=== PATIENT | female | born 1955 | race Two or more races ===

== ENCOUNTER 2017-08-27 09:55 | Outpatient (CLI) | payer OTHER ==
[~2017-08-27 09:55] MED LIST: AMBIEN10 MG; BUDEPRION SR150 MG; CATAFLAM50 MG PO; COZAAR25 MG PO; EFFEXOR XR150 MG; HYZAAR 50/12.51 TAB; KLONOPIN0.5 MG/TAB; METOPROLOL SUCC25 MG; NEURONTIN250 MG/5 M
== END 2017-08-27 15:00 | disposition home or self-care (01) ==
LOC: TOM 09:55
DX: G89.11 Acute pain due to trauma (principal); R51 Headache; R42 Dizziness and giddiness

== ENCOUNTER 2017-10-05 07:47 | Outpatient (CLI) | payer OTHER ==
[2017-10-12] MEDS ORDERED: GRALISE300 MG (12:18)
[2017-10-12] MEDS ORDERED: COZAAR100 MG (12:19)
[2017-10-12] MEDS ORDERED: TOPROL XL25 MG (12:19)
[2017-10-12] MEDS ORDERED: FENOFIBRATE134 MG (12:19)
== END 2017-10-05 07:56 | disposition home or self-care (01) ==
LOC: SONOGRAMA 07:47 → MAMO-SONO 08:15
DX: R10.11 Right upper quadrant pain (principal)

== ENCOUNTER 2017-11-28 07:41 | Outpatient (CLI) | payer OTHER ==
[~2017-11-28 07:41] MED LIST changes: +COZAAR100 MG; +FENOFIBRATE134 MG; +GRALISE300 MG; +TOPROL XL25 MG
== END 2017-11-28 07:43 | disposition home or self-care (01) ==
LOC: SONOGRAMA 07:41
DX: M25.512 Pain in left shoulder (principal)

== ENCOUNTER → 2017-12-10 | Outpatient (CLI) | payer OTHER | END | disposition home or self-care (01) | LOC: RAD 12:09 | DX: M25.562 Pain in left knee (principal); M25.561 Pain in right knee | CPT/HCPCS: 73718 ==

== ENCOUNTER 2018-02-04 09:02 | Outpatient (CLI) | payer OTHER | END 2018-02-04 09:10 | disposition home or self-care (01) | LOC: RAD 501 09:02 | DX: M43.16 Spondylolisthesis, lumbar region (principal); M54.5 Low back pain ==

== ENCOUNTER 2018-03-11 10:15 | Outpatient (CLI) | payer OTHER | END 2018-03-11 10:25 | disposition home or self-care (01) | LOC: RAD 501 10:15 | DX: M54.2 Cervicalgia (principal) ==

== ENCOUNTER 2018-08-16 10:42 | Outpatient (CLI) | payer OTHER | END 2018-08-16 10:49 | disposition home or self-care (01) | LOC: RAD 501 10:42 | DX: M17.11 Unilateral primary osteoarthritis, right knee (principal); M25.561 Pain in right knee ==

== ENCOUNTER 2018-10-22 13:06 | Outpatient (CLI) | payer OTHER | END 2018-10-22 13:23 | disposition home or self-care (01) | LOC: MRI 13:06 | DX: M25.561 Pain in right knee (principal) | CPT/HCPCS: 73721 ==

== ENCOUNTER 2019-03-24 09:52 | Outpatient (CLI) | payer OTHER | END 2019-03-24 09:55 | disposition home or self-care (01) | LOC: RAD 09:52 | DX: M16.0 Bilateral primary osteoarthritis of hip (principal) ==

== ENCOUNTER 2019-05-16 10:14 | Outpatient (CLI) | payer OTHER | END 2019-05-16 10:15 | disposition home or self-care (01) | LOC: RAD 10:14 | DX: M54.2 Cervicalgia (principal) ==

== ENCOUNTER → 2019-06-04 | Outpatient (CLI) | payer OTHER | END | disposition home or self-care (01) | LOC: RAD 11:29 | DX: Z01.811 Encounter for preprocedural respiratory examination (principal) ==

== ENCOUNTER 2019-07-09 10:30 | Outpatient (CLI) | payer OTHER | END 2019-07-09 10:33 | disposition home or self-care (01) | LOC: SONOGRAMA 10:30 | DX: E04.2 Nontoxic multinodular goiter (principal) ==

== ENCOUNTER 2019-09-04 10:47 | Outpatient (CLI) | payer OTHER | END 2019-09-04 10:50 | disposition home or self-care (01) | LOC: MAMO-SONO 10:47 | DX: Z12.31 Encounter for screening mammogram for malignant neoplasm of breast (principal) ==

== ENCOUNTER 2019-09-08 10:56 | Outpatient (CLI) | payer OTHER | END 2019-09-08 11:05 | disposition home or self-care (01) | LOC: NUCLEAR 10:56 | DX: M81.0 Age-related osteoporosis without current pathological fracture (principal) ==

== ENCOUNTER 2020-02-05 08:13 | Outpatient (CLI) | payer OTHER | END 2020-02-05 08:16 | disposition home or self-care (01) | LOC: MRI 08:13 | PROVIDERS: ATTEND Physical Medicine & Rehabilitation | DX: M54.2 Cervicalgia (principal); M54.12 Radiculopathy, cervical region | CPT/HCPCS: 72141 ==

== ENCOUNTER 2020-10-05 09:02 | Outpatient (CLI) | payer OTHER | END 2020-10-05 09:12 | disposition HB | LOC: MRI 09:02 | PROVIDERS: ATTEND Physical Medicine & Rehabilitation | DX: M22.41 Chondromalacia patellae, right knee (principal); M17.11 Unilateral primary osteoarthritis, right knee; M23.261 Derangement of other lateral meniscus due to old tear or injury, right knee | CPT/HCPCS: 73721 ==

== ENCOUNTER 2020-10-06 09:34 | Outpatient (CLI) | payer OTHER | END 2020-10-06 09:42 | disposition home or self-care (01) | LOC: SONOGRAMA 09:34 → MAMO-SONO 10:30 | PROVIDERS: ATTEND Internal Medicine Endocrinology, Diabetes & Metabolism | DX: E04.8 Other specified nontoxic goiter (principal); E04.1 Nontoxic single thyroid nodule ==

== ENCOUNTER 2020-11-18 08:35 | Outpatient (CLI) | payer OTHER | END 2020-11-18 08:49 | disposition home or self-care (01) | LOC: LAB 08:35 | PROVIDERS: ATTEND Internal Medicine | DX: Z12.31 Encounter for screening mammogram for malignant neoplasm of breast (principal); I70.0 Atherosclerosis of aorta; J41.0 Simple chronic bronchitis; I11.9 Hypertensive heart disease without heart failure; K21.9 Gastro-esophageal reflux disease without esophagitis; K63.5 Polyp of colon; M54.5 Low back pain; Q85.00 Neurofibromatosis, unspecified; E03.8 Other specified hypothyroidism; E11.49 Type 2 diabetes mellitus with other diabetic neurological complication; E11.51 Type 2 diabetes mellitus with diabetic peripheral angiopathy without gangrene; E11.8 Type 2 diabetes mellitus with unspecified complications; H25.011 Cortical age-related cataract, right eye; H25.12 Age-related nuclear cataract, left eye; I12.9 Hypertensive chronic kidney disease with stage 1 through stage 4 chronic kidney disease, or unspecified chronic kidney disease; I34.0 Nonrheumatic mitral (valve) insufficiency; N18.2 Chronic kidney disease, stage 2 (mild); N30.00 Acute cystitis without hematuria; Q85.01 Neurofibromatosis, type 1; H52.13 Myopia, bilateral ==

== ENCOUNTER 2020-11-24 10:14 | Outpatient (CLI) | payer OTHER | END 2020-11-24 10:16 | disposition home or self-care (01) | LOC: RAD 10:14 | PROVIDERS: ATTEND Physical Medicine & Rehabilitation | DX: M17.12 Unilateral primary osteoarthritis, left knee (principal) ==

== ENCOUNTER 2021-03-01 08:53 | Emergency (ER) | payer OTHER ==
[~2021-03-01] VITALS: Ht 160 cm; Wt 70.3 kg
[2021-03-01] MEDS ORDERED: KETO10TA2 PO (14:13)
[2021-03-01] MEDS ORDERED: ORPHENADRINE C100 MG PO (14:13)
== END 2021-03-01 14:26 | disposition home or self-care (01) ==
LOC: ER 08:53
DX: S00.03XA Contusion of scalp, initial encounter (principal); S70.02XA Contusion of left hip, initial encounter; M54.2 Cervicalgia; W01.198A Fall on same level from slipping, tripping and stumbling with subsequent striking against other object, initial encounter; Y93.01 Activity, walking, marching and hiking; Y92.480 Sidewalk as the place of occurrence of the external cause; Y99.8 Other external cause status

== ENCOUNTER 2021-03-15 08:55 | Outpatient (CLI) | payer OTHER ==
[~2021-03-15 08:55] MED LIST changes: +KETO10TA2 PO; +ORPHENADRINE C100 MG PO
== END 2021-03-15 09:06 | disposition home or self-care (01) ==
LOC: RX STUDY 08:55
PROVIDERS: ATTEND Internal Medicine Gastroenterology
DX: R13.19 Other dysphagia (principal)

== ENCOUNTER 2021-05-13 12:38 | Emergency (ER) | payer OTHER ==
[~2021-05-13] VITALS: Ht 172.7 cm; Wt 70.3 kg
[2021-05-13] MEDS ORDERED: ORPHENADRINE C100 MG PO (16:43)
[2021-05-13] MEDS ORDERED: CELEBREX100 MG PO (16:43)
== END 2021-05-13 17:04 ==
LOC: ER 12:38
DX: S01.82XA Laceration with foreign body of other part of head, initial encounter (principal); S80.01XA Contusion of right knee, initial encounter; W01.118A Fall on same level from slipping, tripping and stumbling with subsequent striking against other sharp object, initial encounter; Y93.89 Activity, other specified; Y92.480 Sidewalk as the place of occurrence of the external cause; Y99.8 Other external cause status

== ENCOUNTER 2021-05-27 07:49 | Outpatient (CLI) | payer OTHER ==
[~2021-05-27 07:49] MED LIST changes: +CELEBREX100 MG PO
== END 2021-05-27 07:58 | disposition home or self-care (01) ==
LOC: TOM 07:49
PROVIDERS: ATTEND Internal Medicine Gastroenterology
DX: K76.0 Fatty (change of) liver, not elsewhere classified (principal); K80.80 Other cholelithiasis without obstruction; K57.90 Diverticulosis of intestine, part unspecified, without perforation or abscess without bleeding; R10.84 Generalized abdominal pain

== ENCOUNTER 2021-08-05 09:38 | Outpatient (CLI) | payer OTHER | END 2021-08-05 09:44 | disposition home or self-care (01) | LOC: RAD 09:38 | PROVIDERS: ATTEND Physical Medicine & Rehabilitation | DX: S70.01XA Contusion of right hip, initial encounter (principal); S80.01XA Contusion of right knee, initial encounter ==

== ENCOUNTER 2021-08-10 11:09 | Outpatient (CLI) | payer OTHER | END 2021-08-10 11:28 | disposition home or self-care (01) | LOC: MRI 11:09 | PROVIDERS: ATTEND Physical Medicine & Rehabilitation | DX: M54.2 Cervicalgia (principal) | CPT/HCPCS: 72141 ==

== ENCOUNTER 2021-09-05 07:54 | Outpatient (CLI) | payer OTHER | END 2021-09-05 08:06 | disposition home or self-care (01) | LOC: MAMO-SONO 07:54 | PROVIDERS: ATTEND Obstetrics & Gynecology Maternal & Fetal Medicine | DX: N60.11 Diffuse cystic mastopathy of right breast (principal); Z12.31 Encounter for screening mammogram for malignant neoplasm of breast; Q85.01 Neurofibromatosis, type 1; N64.4 Mastodynia ==

== ENCOUNTER 2021-09-20 06:00 | Day surgery (SDC) | payer OTHER ==
[~2021-09-20 06:00] MED LIST changes: +HYZA PO; +SINGULAIR10 MG PO; +SYNTHRIOD PO; +ZOCOR PO; +[UNRECOGNIZED DRUG - OTHER] PO
== END 2021-09-20 16:45 | disposition home or self-care (01) ==
LOC: CIR.AMB 06:00
PROVIDERS: ATTEND Surgery
DX: K80.00 Calculus of gallbladder with acute cholecystitis without obstruction (principal)

== ENCOUNTER 2021-09-30 10:20 | Emergency (ER) | payer OTHER ==
[~2021-09-30] VITALS: Ht 160 cm; Wt 68.5 kg
[2021-09-30] MEDS ORDERED: NEURONTIN300 MG PO (10:35)
[2021-09-30] MEDS ORDERED: GLUMETZA500 MG PO (10:36)
== END 2021-09-30 15:31 | disposition home or self-care (01) ==
LOC: ER 10:20
DX: R06.02 Shortness of breath (principal)

== ENCOUNTER 2021-10-07 10:26 | Outpatient (CLI) | payer OTHER ==
[~2021-10-07 10:26] MED LIST changes: +GLUMETZA500 MG PO; +NEURONTIN300 MG PO
== END 2021-10-07 10:36 | disposition home or self-care (01) ==
LOC: SONOGRAMA 10:26
PROVIDERS: ATTEND Internal Medicine Endocrinology, Diabetes & Metabolism
DX: E04.1 Nontoxic single thyroid nodule (principal)

== ENCOUNTER 2022-05-02 09:04 | Outpatient (CLI) | payer OTHER | END 2022-05-02 09:09 | disposition home or self-care (01) | LOC: SONOGRAMA 09:04 | PROVIDERS: ATTEND Emergency Medicine Pediatric Emergency Medicine | DX: K80.20 Calculus of gallbladder without cholecystitis without obstruction (principal); I12.9 Hypertensive chronic kidney disease with stage 1 through stage 4 chronic kidney disease, or unspecified chronic kidney disease; H52.13 Myopia, bilateral; N18.2 Chronic kidney disease, stage 2 (mild); N30.00 Acute cystitis without hematuria; Q85.01 Neurofibromatosis, type 1; Z12.31 Encounter for screening mammogram for malignant neoplasm of breast; I70.0 Atherosclerosis of aorta; Q85.00 Neurofibromatosis, unspecified; K21.9 Gastro-esophageal reflux disease without esophagitis ==

== ENCOUNTER 2022-05-26 08:57 | Outpatient (CLI) | payer OTHER | END 2022-05-26 09:02 | disposition home or self-care (01) | LOC: NUCLEAR 08:57 | PROVIDERS: ATTEND General Practice | DX: I73.9 Peripheral vascular disease, unspecified (principal); I82.210 Acute embolism and thrombosis of superior vena cava ==

== ENCOUNTER 2022-09-12 10:31 | Outpatient (CLI) | payer OTHER | END 2022-09-12 10:40 | disposition home or self-care (01) | LOC: RAD 10:31 | PROVIDERS: ATTEND Physical Medicine & Rehabilitation | DX: M79.605 Pain in left leg (principal); M25.572 Pain in left ankle and joints of left foot ==

== ENCOUNTER 2022-12-27 07:38 | Outpatient (CLI) | payer OTHER | END 2022-12-27 07:41 | disposition home or self-care (01) | LOC: RAD 07:38 | PROVIDERS: ATTEND Physical Medicine & Rehabilitation | DX: R10.2 Pelvic and perineal pain (principal) ==

== ENCOUNTER 2023-02-28 07:46 | Outpatient (CLI) | payer OTHER | END 2023-02-28 07:47 | disposition home or self-care (01) | LOC: NUCLEAR 07:46 | PROVIDERS: ATTEND Physical Medicine & Rehabilitation | DX: M13.0 Polyarthritis, unspecified (principal); M06.09 Rheumatoid arthritis without rheumatoid factor, multiple sites | CPT/HCPCS: 78315; A9503 ==

== ENCOUNTER 2023-03-28 10:52 | Outpatient (CLI) | payer OTHER | END 2023-03-28 11:01 | disposition home or self-care (01) | LOC: MAMO-SONO 10:52 | PROVIDERS: ATTEND Obstetrics & Gynecology Maternal & Fetal Medicine | DX: Z12.31 Encounter for screening mammogram for malignant neoplasm of breast (principal); N63.0 Unspecified lump in unspecified breast; N64.4 Mastodynia; N60.11 Diffuse cystic mastopathy of right breast ==

== ENCOUNTER 2023-05-01 11:23 | Outpatient (CLI) | payer OTHER | END 2023-05-01 11:29 | disposition home or self-care (01) | LOC: NUCLEAR 11:23 | PROVIDERS: ATTEND Internal Medicine | DX: Z13.820 Encounter for screening for osteoporosis (principal); K80.20 Calculus of gallbladder without cholecystitis without obstruction; I12.9 Hypertensive chronic kidney disease with stage 1 through stage 4 chronic kidney disease, or unspecified chronic kidney disease; H52.13 Myopia, bilateral; N18.2 Chronic kidney disease, stage 2 (mild); N30.00 Acute cystitis without hematuria; Q85.01 Neurofibromatosis, type 1; Z12.31 Encounter for screening mammogram for malignant neoplasm of breast; I70.0 Atherosclerosis of aorta; Q85.00 Neurofibromatosis, unspecified; K21.9 Gastro-esophageal reflux disease without esophagitis ==

== ENCOUNTER 2023-09-05 07:41 | Outpatient (CLI) | payer OTHER | END 2023-09-05 07:47 | disposition home or self-care (01) | LOC: RAD 07:41 | DX: M25.571 Pain in right ankle and joints of right foot (principal); E11.42 Type 2 diabetes mellitus with diabetic polyneuropathy ==

== ENCOUNTER 2023-09-30 09:07 | Emergency (ER) | payer OTHER ==
[~2023-09-30] VITALS: Ht 160 cm; Wt 79.4 kg
[2023-09-30] MEDS ORDERED: PENTOXIFYLLINE400 MG PO (09:44)
[2023-09-30] MEDS ORDERED: FENOFIBRIC ACI135 MG PO (09:45)
[2023-09-30] MEDS ORDERED: GLIMEPIRIDE1 M1 PO (09:45)
[2023-09-30] MEDS ORDERED: LOSARTAN POTASS50 MG PO (09:46)
[2023-09-30] MEDS ORDERED: METOPROLOL SUCC50 MG PO (09:46)
[2023-09-30] MEDS ORDERED: JARDIANCE10 MG PO (09:46)
[2023-09-30] MEDS ORDERED: CETIRIZINE HCL10 MG PO (09:47)
[2023-09-30] MEDS ORDERED: ANTIVERT25 M2 PO (09:48)
[2023-09-30] MEDS ORDERED: CLONAZEPAM0.5 MG PO (09:49)
[2023-09-30] MEDS ORDERED: ESTAZOLAM2 MG PO (09:49)
[2023-09-30] MEDS ORDERED: SINGULAIR10 MG PO (09:50)
[2023-09-30] MEDS ORDERED: SIMVASTATIN20 MG PO (09:50)
[2023-09-30] MEDS ORDERED: KETOROLAC TROMETHAMINE 60 MG VIAL IM ONE (10:45)
[2023-09-30 11:33] LABS: HEMATOCRIT 42.5 % (36.0-45.00); HEMOGLOBIN 14.1 g/dL (12.0-15.00); MEAN CELL VOLUME 89.1 fL (80.00-100.00); MEAN CORPUSCULAR HEMOGLOBIN 29.5 pg (27.00-32.0); MEAN CORPUSCULAR HGB CONC 33.1 g/dl (32.0-36.0); PLATELET COUNT 304 K/uL (150-450); RED BLOOD COUNT 4.77 M/uL (4.00-6.00); RED CELL DISTRIBUTION WIDTH 13.8 % (11.5-14.5)
[2023-09-30 11:45] LABS: URINE APPEARANCE Clear; URINE BILIRRUBIN Negative (NEGATIVE); URINE BLOOD Negative; URINE COLOR Yellow; URINE LEUKOCYTE Negative; URINE NITRATE Positive; URINE PROTEIN Negative (NEGATIVE); URINE UROBILINOGEN 0.2 E.U./dl
[2023-09-30 11:49] LABS: URINE EPITHELIAL CELLS 6.4 uL (0.0-38.8); URINE WBC 6.7 uL (0.0-23.2)
[2023-09-30 11:55] LABS: URINE BACTERIA > 9821.5 uL (0.0-1933); URINE GLUCOSE >=1000 MG/DL (NEGATIVE); URINE RBC 0.7 uL (0.0-20.8)
== END 2023-09-30 15:39 | disposition home or self-care (01) ==
LOC: ER 09:07
PROVIDERS: General Practice
DX: R42 Dizziness and giddiness (principal); Q85.01 Neurofibromatosis, type 1; M51.36 Other intervertebral disc degeneration, lumbar region; E03.9 Hypothyroidism, unspecified
CPT/HCPCS: 36415; 70450; 93005; 99283; J1885

== ENCOUNTER 2023-10-22 06:55 | Emergency (ER) | payer OTHER ==
[~2023-10-22] VITALS: Ht 157.5 cm; Wt 72.6 kg
[~2023-10-22 06:55] MED LIST changes: +ANTIVERT25 M2 PO; +CETIRIZINE HCL10 MG PO; +CLONAZEPAM0.5 MG PO; +ESTAZOLAM2 MG PO; +FENOFIBRIC ACI135 MG PO; +GLIMEPIRIDE1 M1 PO; +JARDIANCE10 MG PO; +LOSARTAN POTASS50 MG PO; +METOPROLOL SUCC50 MG PO; +PENTOXIFYLLINE400 MG PO; +SIMVASTATIN20 MG PO
[2023-10-22] MEDS ORDERED: FAMOTIDINE/PF 20 MG/2 ML VIAL IV PUSH STA (07:56)
[2023-10-22] MEDS ORDERED: ONDANSETRON HCL 2 MG/ML VIAL IV STA (07:56)
[2023-10-22] MEDS ORDERED: 0.9 % SODIUM CHLORIDE 1,000 ML IV ONE (08:00)
[2023-10-22 08:54] LABS: HEMATOCRIT 36.7 % (36.0-45.00); HEMOGLOBIN 12.2 g/dL (12.0-15.00); MEAN CELL VOLUME 87.5 fL (80.00-100.00); MEAN CORPUSCULAR HEMOGLOBIN 29.1 pg (27.00-32.0); MEAN CORPUSCULAR HGB CONC 33.3 g/dl (32.0-36.0); PLATELET COUNT 251 K/uL (150-450); RED CELL DISTRIBUTION WIDTH 14.6 % (11.5-14.5)
[2023-10-22 09:10] LABS: BILIRUBIN TOTAL 0.65 mg/dL (0.3-1.2); CALCIUM 9.3 mg/dL (8.5-10.1); CREATININE SERUM 1.5 mg/dL (0.55-1.02); GFR 34.43; GLOBULINA 3.6 G/DL (2.4-3.5); POTASSIUM 4.13 mEq/L (3.5-5.1); TOTAL PROTEIN 6.6 gm/dL (6.4-8.2)
[2023-10-22 11:28] LABS: URINE APPEARANCE CLEAR; URINE BILIRRUBIN NEGATIVE (NEGATIVE); URINE COLOR YELLOW; URINE GLUCOSE NEGATIVE (NEGATIVE); URINE NITRATE NEGATIVE; URINE PROTEIN TRACE (NEGATIVE); URINE UROBILINOGEN 0.2 E.U./dl
[2023-10-22 11:29] LABS: URINE BLOOD NEGATIVE; URINE LEUKOCYTE MODERATE
[2023-10-22 11:30] LABS: URINE BACTERIA MANY; URINE EPITHELIAL CELLS 0-4 /HPF; URINE RBC 0-3 /HPF; URINE WBC LOADED /hpf
[2023-10-22] MEDS ORDERED: LEVOFLOXACIN500 MG PO (12:31)
== END 2023-10-22 12:41 | disposition home or self-care (01) ==
LOC: ER 06:55
PROVIDERS: General Practice
DX: R10.13 Epigastric pain (principal); E11.9 Type 2 diabetes mellitus without complications; Z79.84 Long term (current) use of oral hypoglycemic drugs; I10 Essential (primary) hypertension; Z87.09 Personal history of other diseases of the respiratory system
CPT/HCPCS: 36415; 96365; 99283; J2405; J3490

== ENCOUNTER 2023-10-24 11:37 | Emergency (ER) | payer OTHER ==
[~2023-10-24] VITALS: Ht 160 cm; Wt 77.1 kg
[~2023-10-24 11:37] MED LIST changes: +LEVOFLOXACIN500 MG PO
[2023-10-24] MEDS ORDERED: TOPROL XL25 M1 (11:47)
[2023-10-24] MEDS ORDERED: GLIMEPIRIDE2 MG (11:49)
[2023-10-24] MEDS ORDERED: RAYOS5 MG (11:51)
[2023-10-24] MEDS ORDERED: FAMOtidine 10 MG/ML (4ML VIAL) IV STA (12:59)
[2023-10-24] MEDS ORDERED: ONDANSETRON HCL 2 MG/ML VIAL IV ONE (13:00)
[2023-10-24 13:44] LABS: HEMATOCRIT 37.8 % (36.0-45.00); HEMOGLOBIN 12.6 g/dL (12.0-15.00); MEAN CELL VOLUME 87.7 fL (80.00-100.00); MEAN CORPUSCULAR HEMOGLOBIN 29.4 pg (27.00-32.0); MEAN CORPUSCULAR HGB CONC 33.5 g/dl (32.0-36.0); PLATELET COUNT 220 K/uL (150-450); RED BLOOD COUNT 4.31 M/uL (4.00-6.00); RED CELL DISTRIBUTION WIDTH 14.5 % (11.5-14.5)
[2023-10-24 14:10] LABS: CALCIUM 9.2 mg/dL (8.5-10.1); CREATININE SERUM 1.31 mg/dL (0.55-1.02); GFR 40.25; POTASSIUM 3.67 mEq/L (3.5-5.1)
[2023-10-24 17:28] LABS: PH,URINE 5.5 (5.0-8.0); URINE APPEARANCE Clear; URINE BILIRRUBIN Negative (NEGATIVE); URINE BLOOD Moderate; URINE COLOR Yellow; URINE LEUKOCYTE Trace; URINE NITRATE Positive; URINE PROTEIN Trace (NEGATIVE); URINE UROBILINOGEN 0.2 E.U./dl
[2023-10-24 17:32] LABS: URINE EPITHELIAL CELLS 8.8 uL (0.0-38.8); URINE RBC 8.9 uL (0.0-20.8); URINE WBC 78.1 uL (0.0-23.2)
[2023-10-24 17:39] LABS: URINE BACTERIA > 9821.5 uL (0.0-1933); URINE GLUCOSE >=1000 MG/DL (NEGATIVE)
== END 2023-10-24 19:50 | disposition home or self-care (01) ==
LOC: ER 11:37
PROVIDERS: General Practice
DX: N39.0 Urinary tract infection, site not specified (principal); E11.9 Type 2 diabetes mellitus without complications; Z79.84 Long term (current) use of oral hypoglycemic drugs; I10 Essential (primary) hypertension
CPT/HCPCS: 36415; 93005; 96365; 99283; J2405; J3490

== ENCOUNTER 2023-10-30 08:18 | Outpatient (CLI) | payer OTHER ==
[~2023-10-30 08:18] MED LIST changes: +GLIMEPIRIDE2 MG; +RAYOS5 MG; +TOPROL XL25 M1
== END 2023-10-30 08:23 | disposition home or self-care (01) ==
LOC: SONOGRAMA 08:18
PROVIDERS: ATTEND Internal Medicine Endocrinology, Diabetes & Metabolism
DX: E04.1 Nontoxic single thyroid nodule (principal); E04.9 Nontoxic goiter, unspecified

== ENCOUNTER → 2024-03-06 07:28 | Outpatient (CLI) | payer OTHER | END | disposition home or self-care (01) | LOC: NUCLEAR 07:28 | PROVIDERS: ATTEND Psychiatry & Neurology Clinical Neurophysiology | DX: I65.23 Occlusion and stenosis of bilateral carotid arteries (principal) ==

== ENCOUNTER 2024-03-06 08:40 | Outpatient (CLI) | payer OTHER | END 2024-03-07 08:31 | disposition home or self-care (01) | LOC: TOM 08:40 | PROVIDERS: ATTEND Psychiatry & Neurology Clinical Neurophysiology | DX: I62.03 Nontraumatic chronic subdural hemorrhage (principal) ==

== ENCOUNTER 2024-03-25 07:24 | Outpatient (CLI) | payer OTHER | END 2024-03-25 08:29 | disposition home or self-care (01) | LOC: MRI 07:24 | PROVIDERS: ATTEND Physical Medicine & Rehabilitation | DX: M25.562 Pain in left knee (principal) | CPT/HCPCS: 73721 ==

== ENCOUNTER 2024-03-26 17:46 | Emergency (ER) | payer OTHER ==
[~2024-03-26] VITALS: Ht 160 cm; Wt 73.0 kg
[2024-03-26] MEDS ORDERED: DEXTROSE 50 % IN WATER 0.5 G/ML VIAL IV ONE (18:15)
[2024-03-26 19:02] LABS: HEMOGLOBIN 12.3 g/dL (12.0-15.00); MEAN CELL VOLUME 87.8 fL (80.00-100.00); MEAN CORPUSCULAR HEMOGLOBIN 30.1 pg (27.00-32.0); MEAN CORPUSCULAR HGB CONC 34.3 g/dl (32.0-36.0); PLATELET COUNT 300 K/uL (150-450); RED CELL DISTRIBUTION WIDTH 13.7 % (11.5-14.5)
[2024-03-26 19:05] LABS: ALBUMIN 3.3 gm/dL (3.4-5.0); BILIRUBIN TOTAL 0.13 mg/dL (0.3-1.2); CALCIUM 9.6 mg/dL (8.5-10.1); CREATININE SERUM 1.55 mg/dL (0.55-1.02); GFR 33.15; GLOBULINA 3.2 G/DL (2.4-3.5); POTASSIUM 4.13 mEq/L (3.5-5.1); TOTAL PROTEIN 6.5 gm/dL (6.4-8.2)
== END 2024-03-26 20:15 | disposition home or self-care (01) ==
LOC: ER 17:48
PROVIDERS: General Practice
DX: E16.2 Hypoglycemia, unspecified (principal); I10 Essential (primary) hypertension
CPT/HCPCS: 36415; 96365; 99282; J3490

== ENCOUNTER 2024-03-28 07:43 | Emergency (ER) | payer OTHER ==
[~2024-03-28] VITALS: Ht 160 cm; Wt 76.7 kg
[2024-03-28 09:20] LABS: HEMATOCRIT 39.1 % (36.0-45.00); HEMOGLOBIN 12.9 g/dL (12.0-15.00); MEAN CELL VOLUME 89.1 fL (80.00-100.00); MEAN CORPUSCULAR HEMOGLOBIN 29.4 pg (27.00-32.0); PLATELET COUNT 298 K/uL (150-450); RED BLOOD COUNT 4.38 M/uL (4.00-6.00); RED CELL DISTRIBUTION WIDTH 13.8 % (11.5-14.5)
[2024-03-28 09:58] LABS: CALCIUM 9.8 mg/dL (8.5-10.1); CREATININE SERUM 1.35 mg/dL (0.55-1.02); GFR 38.88; POTASSIUM 4.71 mEq/L (3.5-5.1)
[2024-03-28 10:50] LABS: PH,URINE 5.5 (5.0-8.0); URINE APPEARANCE Clear; URINE BILIRRUBIN Negative (NEGATIVE); URINE BLOOD Negative; URINE COLOR Yellow; URINE KETONE Negative (NEGATIVE); URINE LEUKOCYTE Negative; URINE NITRATE Negative; URINE PROTEIN Negative (NEGATIVE); URINE UROBILINOGEN 0.2 E.U./dl
[2024-03-28 10:54] LABS: URINE EPITHELIAL CELLS 2.3 uL (0.0-38.8)
[2024-03-28 10:59] LABS: URINE BACTERIA 2.5 uL (0.0-1933); URINE GLUCOSE 100 MG/DL (NEGATIVE); URINE RBC 0.7 uL (0.0-20.8); URINE WBC 1.3 uL (0.0-23.2)
== END 2024-03-28 14:07 | disposition home or self-care (01) ==
LOC: ER 07:43
PROVIDERS: General Practice
DX: E16.2 Hypoglycemia, unspecified (principal); I10 Essential (primary) hypertension; E11.9 Type 2 diabetes mellitus without complications; Z79.84 Long term (current) use of oral hypoglycemic drugs

== ENCOUNTER 2024-08-15 11:12 | Emergency (ER) | payer OTHER ==
[~2024-08-15] VITALS: Ht 160 cm; Wt 73.5 kg
[2024-08-15] MEDS ORDERED: DEXTROSE 50 % IN WATER 0.5 G/ML DISP.SYRIN IV ONE (11:20)
[2024-08-15] MEDS ORDERED: DEXTROSE 50 % IN WATER 0.5 G/ML VIAL IV STA (11:32)
[2024-08-15 11:46] LABS: HEMATOCRIT 40.8 % (36.0-45.00); HEMOGLOBIN 13.5 g/dL (12.0-15.00); MEAN CELL VOLUME 89.2 fL (80.00-100.00); MEAN CORPUSCULAR HEMOGLOBIN 29.6 pg (27.00-32.0); MEAN CORPUSCULAR HGB CONC 33.2 g/dl (32.0-36.0); PLATELET COUNT 331 K/uL (150-450); RED BLOOD COUNT 4.57 M/uL (4.00-6.00); RED CELL DISTRIBUTION WIDTH 13.9 % (11.5-14.5)
[2024-08-15 12:11] LABS: CALCIUM 9.4 mg/dL (8.5-10.1); CREATININE SERUM 1.25 mg/dL (0.55-1.02); GFR 42.37; POTASSIUM 3.89 mEq/L (3.5-5.1)
[2024-08-15] MEDS ORDERED: DEXTROSE 5 % IN WATER 500 ML IV SCH (12:45)
[2024-08-15] MEDS ORDERED: DEXTROSE 10 % IN WATER 500 ML IV SCH (13:00)
[2024-08-15] MEDS ORDERED: INSULIN REGULAR, HUMAN 1,000 UNIT/10 ML UNITS IV STA (14:32)
== END 2024-08-15 16:10 | disposition home or self-care (01) ==
LOC: ER 11:12
PROVIDERS: General Practice
DX: E11.649 Type 2 diabetes mellitus with hypoglycemia without coma (principal); Z79.84 Long term (current) use of oral hypoglycemic drugs
CPT/HCPCS: 36415; 99282; J7070

== ENCOUNTER 2024-10-06 07:35 | Outpatient (CLI) | payer OTHER | END 2024-10-06 07:38 | disposition home or self-care (01) | LOC: RAD 07:35 | PROVIDERS: ATTEND Physical Medicine & Rehabilitation | DX: M85.871 Other specified disorders of bone density and structure, right ankle and foot (principal) ==

== ENCOUNTER 2024-11-21 08:51 | Outpatient (CLI) | payer OTHER | END 2024-11-21 08:57 | disposition home or self-care (01) | LOC: MAMO-SONO 08:51 | PROVIDERS: ATTEND Obstetrics & Gynecology Maternal & Fetal Medicine | DX: N63.0 Unspecified lump in unspecified breast (principal); N64.4 Mastodynia; N60.11 Diffuse cystic mastopathy of right breast; Z12.31 Encounter for screening mammogram for malignant neoplasm of breast ==

== ENCOUNTER 2025-02-27 07:19 | Outpatient (CLI) | payer OTHER | END 2025-02-27 07:36 | disposition home or self-care (01) | LOC: MRI 07:19 | PROVIDERS: ATTEND Physical Medicine & Rehabilitation | DX: M25.562 Pain in left knee (principal) | CPT/HCPCS: 73721 ==

== ENCOUNTER 2025-04-23 07:16 | Outpatient (CLI) | payer OTHER | END 2025-04-23 07:20 | disposition home or self-care (01) | LOC: SONOGRAMA 07:16 | PROVIDERS: ATTEND Internal Medicine Endocrinology, Diabetes & Metabolism | DX: K76.0 Fatty (change of) liver, not elsewhere classified (principal); K75.0 Abscess of liver; I11.9 Hypertensive heart disease without heart failure; E11.9 Type 2 diabetes mellitus without complications; R31.0 Gross hematuria; R05.9 Cough, unspecified ==